=== PATIENT | male | born 1960 | race Caucasian/White ===

== ENCOUNTER → 2023-10-02 06:38 | Day surgery (SDC) | payer BC, SELFPAY | LOC: GI 06:38 | PROVIDERS: ATTENDING PHYSICIAN Internal Medicine Gastroenterology; FAMILY PHYSICIAN Family Medicine | DX: Z12.11 Encounter for screening for malignant neoplasm of colon (principal); Z80.0 Family history of malignant neoplasm of digestive organs; K64.8 Other hemorrhoids; K57.30 Diverticulosis of large intestine without perforation or abscess without bleeding | CPT/HCPCS: G0105 ==

== ENCOUNTER 2024-10-15 06:52 | Emergency (ER) | payer BC, SELFPAY ==
[2024-10-15 06:55] VITALS: BP 155/94
--- NOTE | 2024-10-15 08:39 | ED.GENMED ---
History of Present Illness
General
Chief Complaint: Nose Bleed
Source: patient
Exam Limitations: none
Time Seen by Provider: 10/15/24 07:56
History of Present Illness
History of Present Illness:
Patient with COVID for 7 to 10 days. Is had some cough and congestion. Has had an intermittent nosebleed over the last week. Cauterized at the primary care office. However still intermittent in nature. Last episode this morning. Improving
symptoms from COVID.
Past History
Past History
ED Past Surgical History: Appendectomy, Orthopedic and Other (Mohs surgery)
Phy Exam
Physical Exam
Physical Exam:
GENERAL: Alert and oriented in no apparent distress. Some nasal congestion
EYE: Orbits normal.
NECK: Supple
ENT: Pharynx without erythema.. No clot or blood in the posterior pharynx. Right nares normal. Small crusted area to the lateral mucosa of the left nares. No septal cauterization bleeding mass etc.
CARDIAC: Regular rate and rhythm
LUNGS: No distress
NEUROLOGICAL: Alert and oriented , grossly non-focal
SKIN: Warm and dry, no unusual ecchymosis petechia purpura conjunctiva normal
PSYCH: Normal and appropriate interaction.
Course
Vital Signs
Initial and Last Documented VS:
Initial Vital Signs
Temp Pulse Resp BP Pulse Ox
97.7 F 76 18 155/94 99
10/15/24 06:55 10/15/24 06:55 10/15/24 06:55 10/15/24 06:55 10/15/24 06:55
Last Documented Vital Signs
Temp Pulse Resp BP Pulse Ox
97.7 F 76 18 155/94 99
10/15/24 06:55 10/15/24 06:55 10/15/24 06:55 10/15/24 06:55 10/15/24 08:43
Procedures
Nosebleed
Drug treatment: Epinephrine
Treatment: Merocel packing
Post treatment bleeding: none- good control
MDM/Problems Addressed
Differential Diagnosis Includes:
Resolving COVID infection with recurrent epistaxis left nares. No obvious source to cauterize. Discussed options. Was placed a Merisel. Discussed lab work for intermittent bleeding although has nothing clinically to support a bleeding disorder.
Will hold on labs.
*Pulse Oximetry
SaO2: 99
Oxygen Mode of Delivery: Room air
Patient hypoxic: no
*Critical Care Note
Total Time (30-74mins, 75-104mins- exclusive of procedures): Not Applicable
Update Note
Update Note:
Recheck no bleeding. Stable for discharge
ED Attending Note
-
Portions of this chart may have been created with voice recognition software.� Occasional wrong word or��sound alike� substitutions may have occurred due to the inherent limitations of voice recognition software.
Discharge Plan
Departure
Patient Disposition: Home (Routine Discharge)
Date of Disposition: 10/15/24
Time of Disposition: 08:42
Patient with high blood pressure during this ER visit?: Yes
Discharge Problem:
Recurring left nares epistaxis, Resolving COVID infection
Instructions: Nosebleeds (DC), COVID-19 in adults - Discharge instructions, BLOOD PRESSURE
Referrals:
Rhonda Elizalde MD [Active, Otology] - Follow up in 2-3 days
Activity Restrictions/Additional Instructions:
Call ENT Friday morning to have the packing removed Friday or Friday. Again other options would be primary care or the ER
Interventions
Interventions:
*Risk Screen - Suicide Last Done: 10/15/24 06:55
*General Assessment Last Done: 10/15/24 09:15
*Neglect/Abuse Screening Last Done: 10/15/24 06:55
*ED- Fall Risk Assessment Last Done: 10/15/24 09:15
*ED COVID-19 Vaccine History Last Done: 10/15/24 09:15
*Nursing Disposition Last Done: 10/15/24 09:15
ED-EENT Assessment Last Done: 10/15/24 09:16
Discharge Date and Time
Discharge Date/Time: 10/15/24 09:16
Print Language: IRANIAN
== END 2024-10-15 09:16 | disposition home or self-care (01) ==
LOC: EMR 06:52
PROVIDERS: EMERGENCY PHYSICIAN Emergency Medicine; FAMILY PHYSICIAN Family Medicine
DX: R04.0 Epistaxis (principal); U07.1 COVID-19; Z90.49 Acquired absence of other specified parts of digestive tract
CPT/HCPCS: 99282; 30901